=== PATIENT | male | born 1950 | race Asian ===

== ENCOUNTER 2017-01-03 | Emergency (ER) | payer OTHER ==
[~2017-01-03] VITALS: Ht 172.7 cm; Wt 57.9 kg
[2017-01-03 00:04] VITALS: Ht 172.7 cm; Wt 57.9 kg
--- NOTE | 2017-01-03 01:39 | RADRPT ---
PROCEDURE: CT brain without contrast. CLINICAL INDICATION: Injury and pain. TECHNIQUE: CT scan of the brain was performed on a multi-detector high-resolution CT scanner. Co ntiguous axial images were obtained from the skull base to the vertex without intravenous contrast. Coronal and sagittal reformatted images were also obtained. Images were reviewed on the PACS works tation. One or more of the following dose reduction techniques were used: - Automated exposure control. - Adjustment of the mA and/or kV according to patient size. - Use of iterative reconstruction technique. Exam CTD/vol = 45.01 mGy. Total exam DLP = 720.23 mGy-cm. COMPARISON: None. FINDINGS: The ventricles and cortical sulci are prominent consistent with mild age related volume loss. There are no areas of abnormal attenuation within the brain parenchyma. There is no mass effect or midli ne shift. There is no intracranial hemorrhage or abnormal extra-axial collection. There are atheros clerotic calcifications within bilateral distal internal carotid arteries. The calvarium is intact. There is no evidence of fracture. Visualized paranasal sinuses and mastoi d air cells are clear. IMPRESSION: No acute intracranial abnormality identified. Mild age related volume loss. Cerebral atherosclerosis. .Neal Mchugh MD, MD Date Time Electronically viewed and signed by .Neal Mchugh MD, MD on 01/03/2017 01:39 .T/
[2017-01-03] MEDS ORDERED: LIDOCAINE 2% (MDV) 20 ML INJ INJ ONE (02:00)
--- NOTE | 2017-01-03 02:18 | ERD ---
ER Documentation Chief Complaint Chief Complaint bib family for fall, lac on forehead HPI 66-year-old male brought in the family for follow-up. His laceration on his forehead. No loss of consciousness. This was a mechanical fall that was witnessed by family. Patient simply misstepped ROS All systems reviewed and are negative except as per history of present illness. Allergies Allergies: Coded Allergies: No Known Allergy (Unverified , 01/03/17) PMhx/Soc Medical and Surgical Hx: pt denies Medical Hx, pt denies Surgical Hx History of Surgery: No Anesthesia Reaction: No Hx Neurological Disorder: No Hx Respiratory Disorders: No Hx Cardiac Disorders: No Hx Psychiatric Problems: No Hx Miscellaneous Medical Probl: No Hx Alcohol Use: Yes Hx Tobacco Use: Yes Smoking Status: Current every day smoker Physical Exam Vitals Vital Signs Date Time Temp Pulse Resp B/P Pulse Ox O2 Delivery O2 Flow Rate FiO2 01/03/17 00:04 97.5 90 18 193/88 100 Physical Exam Const: [] Head: Atraumatic Eyes: Normal Conjunctiva ENT: Normal External Ears, Nose and Mouth. Neck: Full range of motion..~ No meningismus. Resp: Clear to auscultation bilaterally Cardio: Regular rate and rhythm, no murmurs Abd: Soft, non tender, non distended. Normal bowel sounds Skin: No petechiae or rashes Back: No midline or flank tenderness Ext: No cyanosis, or edema Neur: Awake and alert Psych: Normal Mood and Affect Results 24 hrs Current Medications Medications (Trade) Dose Ordered Sig/Tavares Route PRN Reason Start Time Stop Time Status Last Admin Dose Admin Lidocaine (Xylocaine 2% (Mdv) 20 ml) 20 ml ONCE ONCE INJ 01/03/17 02:00 01/03/17 02:01 DC Procedures/MDM Laceration Repair by me: Anesthesia: 1% lidocaine locally Location: Forehead Tendon/Joint/Nerves: No injury Foreign body: None detected after copious irrigation and exploration Technique: Simple Interrupted Sutures Complexity: No subcutaneous sutures/mucosal repair/ edge excision Post Closure Length: 2 cm Patient's bleeding was easily controlled in the department and there is no indication of anemia. No evidence of compartment syndrome, neurologic injury, vascular injury, open joint, tendon laceration, or foreign body. Patient is appropriate for outpatient follow up. 48 hour wound check. Scar minimization instructions given. Medical decision-makin-year-old male with closed head injury no loss of consciousness and nonfocal neurologically. Laceration closed. Patient tolerated procedure well. Alert and oriented 4. Patient will be discharged home as he has serial negative neurological exams and the family's capacity. Told to return for any worsening symptoms. Departure Diagnosis: Primary Impression: Fall Encounter type: initial encounter Qualified Code: W19.XXXA - Fall, initial encounter Additional Impression: Laceration Condition: Stable JOSH BRADEN Jan 03, 2017 02:18
[2017-01-03 02:42] VITALS: BP 156/89; PULSE 83; RESP 13
== END 2017-01-03 02:45 | disposition home or self-care (01) ==
LOC: E/R
DX: S01.81XA Laceration without foreign body of other part of head, initial encounter (principal); F17.210 Nicotine dependence, cigarettes, uncomplicated; R40.2142 Coma scale, eyes open, spontaneous, at arrival to emergency department; R40.2252 Coma scale, best verbal response, oriented, at arrival to emergency department; R40.2362 Coma scale, best motor response, obeys commands, at arrival to emergency department; W18.39XA Other fall on same level, initial encounter; Y92.9 Unspecified place or not applicable
CPT/HCPCS: 12011; 70450; Z7502; Z7610

== ENCOUNTER 2017-01-07 15:51 | Emergency (ER) | payer OTHER ==
[~2017-01-07] VITALS: Ht 157.5 cm; Wt 58.7 kg
[2017-01-07 16:04] VITALS: Ht 157.5 cm; Wt 58.7 kg
--- NOTE | 2017-01-07 19:40 | ERD ---
ER Documentation Chief Complaint Chief Complaint LEFT EYEBROW WOUND CHECK HPI 66-year-old male patient with no significant past medical history presents to the ED complaining of a wound check of laceration of left eyebrow. Patient accidentally tripped fell 4 days ago and sustained a laceration to his face. Denies any pain with extraocular movements. Denies any headache, dizziness, weakness, numbness or tingling. Denies any increased redness, swelling, fever, chills, nausea, vomiting, diarrhea. ROS All systems reviewed and are negative except as per history of present illness. Allergies Allergies: Coded Allergies: No Known Allergy (Unverified , 01/09/17) PMhx/Soc History of Surgery: No Anesthesia Reaction: No Hx Neurological Disorder: No Hx Respiratory Disorders: No Hx Cardiac Disorders: No Hx Psychiatric Problems: No Hx Miscellaneous Medical Probl: No Hx Alcohol Use: Yes Hx Substance Use: No Hx Tobacco Use: Yes Smoking Status: Current every day smoker Physical Exam Vitals Vital Signs Date Time Temp Pulse Resp B/P Pulse Ox O2 Delivery O2 Flow Rate FiO2 01/07/17 16:04 99.3 90 18 180/75 99 Physical Exam Const: Xlw-non-vqddqiivo, well-nourished. In no acute distress. Head: Atraumatic, normocephalic. 3 sutures of linear laceration of left eyebrow with no signs of erythema, edema, bleeding or purulent discharge noted. No fluctuance or induration. No dehiscence. Eyes: Normal Conjunctiva without injection. No purulent discharge. PERRLA. EOMI ENT: Normal external ear. Ear canal without erythema. Tympanic membrane pearly darnell without effusion or bulging. Nasal canal clear with normal turbinates. Moist oropharynx without tonsillar exudates. Non-erythematous pharynx. Uvula midline. No drooling. No trismus. Neck: No cervical midline tenderness. Full range of motion. No meningismus. No cervical lymphadenopathy. No JVD. Resp: Clear to auscultation bilaterally. No wheezing, rhonchi, rales, or crackles. No accessory muscle use. No retractions. Cardio: Regular rate and rhythm. No murmurs, rubs or gallops. Abd: Soft, non tender, non distended. Normal bowel sounds. No palpable masses. No rebound tenderness. No guarding. Negative McBurney's Point. Negative Ruggiero's Sign. Skin: Normal skin turgor. No petechiae or rashes Back: No midline tenderness. No CVA tenderness. Ext: No cyanosis, or edema. Distal pulses intact bilaterally. Neur: Awake and alert. Normal gait. Normal coordination. Cranial Nerves II- VII intact. Normal finger to nose. Muscle strength 5/5. Sensation intact. Psych: Normal Mood and Affect Procedures/MDM 66-year-old male patient with no significant past history presents to the ED check. Patient is afebrile and nontoxic-appearing. Patient has normal vital signs. Sutures not ready to be removed at this time. No signs of dehiscence Low suspicion for anaphylaxis, scabies, SJS/TEN, TSS, Lyme's Disease, syphilis, RMSF, shingles, disseminated gonorrhea chlamydia, DIC, TTP, ITP, erythema multiforme, sepsis, cellulitis, necrotizing fascitis, gangrene, meningococcemia , allergic contact dermatitis, urticaria, eczema, tinea infection, or other emergent conditions. Low suspicion for intracranial bleed, subarachnoid hemorrhage, meningitis, TIA, stroke, cavernous sinus thrombosis, skull fracture , periorbital fractures, nasal fractures, or other emergent conditions. Follow up with primary care physician in 1-2 days for suture removal. Instructed patient to return to the ED sooner for any worsening symptoms. Patient's questions were answered. Patient understood and agreed with discharge plan. Patient discharged stable. Departure Diagnosis: Primary Impression: Laceration re-check Condition: Stable Patient Instructions: Wound Check, Lac F/U (No Infection) Referrals: [facility] (PCP) [facility] YOU HAVE RECEIVED A MEDICAL SCREENING EXAM AND THE RESULTS INDICATE THAT YOU DO NOT HAVE A CONDITION THAT REQUIRES URGENT TREATMENT IN THE EMERGENCY DEPARTMENT. FURTHER EVALUATION AND TREATMENT OF YOUR CONDITION CAN WAIT UNTIL YOU ARE SEEN IN YOUR DOCTORS OFFICE WITHIN THE NEXT 1-2 DAYS. IT IS YOUR RESPONSIBILITY TO MAKE AN APPOINTMENT FOR FOLOW-UP CARE. IF YOU HAVE A PRIMARY DOCTOR --you should call your primary doctor and schedule an appointment IF YOU DO NOT HAVE A PRIMARY DOCTOR YOU CAN CALL OUR PHYSICIAN REFERRAL HOTLINE AT IF YOU CAN NOT AFFORD TO SEE A PHYSICIAN YOU CAN CHOSE FROM THE FOLLOWING [facility][1] [address] [facility]. [facility] [address] [facility] [address] [facility] [address] [facility] [address] [facility]. [facility] [address] [facility]. [facility] YOU HAVE RECEIVED A MEDICAL SCREENING EXAM AND THE RESULTS INDICATE THAT YOU DO NOT HAVE A CONDITION THAT REQUIRES URGENT TREATMENT IN THE EMERGENCY DEPARTMENT. FURTHER EVALUATION AND TREATMENT OF YOUR CONDITION CAN WAIT UNTIL YOU ARE SEEN IN YOUR DOCTORS OFFICE WITHIN THE NEXT 1-2 DAYS. IT IS YOUR RESPONSIBILITY TO MAKE AN APPOINTMENT FOR FOLOW-UP CARE. IF YOU HAVE A PRIMARY DOCTOR --you should call your primary doctor and schedule and appointment IF YOU DO NOT HAVE A PRIMARY DOCTOR YOU CAN CALL OUR PHYSICIAN REFERRAL HOTLINE AT . IF YOU CAN NOT AFFORD TO SEE A PHYSICIAN YOU CAN CHOSE FROM THE FOLLOWING [facility] INSTITUTIONS: [facility] [address] [place] [address] [facility] [address] [place] [address] [facility] [address] [place] [address] [facility] Additional Instructions: Call your primary care doctor TOMORROW for an appointment during the next 2 days for suture removal. See the doctor sooner or return here if your condition worsens before your appointment time - worsening headache, vomiting, fever, dizziness, weakness, etc. SAMSON DICKERSON PA-C Jan 07, 2017 19:40
== END 2017-01-07 18:52 | disposition home or self-care (01) ==
LOC: FTE 15:51
DX: Z48.01 Encounter for change or removal of surgical wound dressing (principal); F17.210 Nicotine dependence, cigarettes, uncomplicated
CPT/HCPCS: 99281

== ENCOUNTER 2017-01-09 06:26 | Emergency (ER) | payer OTHER ==
[~2017-01-09] VITALS: Ht 172.7 cm; Wt 58.3 kg
[2017-01-09 06:28] VITALS: Ht 172.7 cm; Wt 58.3 kg
--- NOTE | 2017-01-09 07:08 | ERD ---
ER Documentation Chief Complaint Chief Complaint left eyebrow suture removal HPI 66-year-old male present here today for removal of the sutures in his left eyebrow area. He has sustained laceration 6 days ago when he tripped and fell. Patient stated that he is doing well since. Denies fever. Denies pain at the site of the laceration or wound drainage. Denies nausea vomiting. Denies lethargy or decreased alertness. Denies confusion or difficulty in concentration. ROS All systems reviewed and are negative except as per history of present illness. Allergies Allergies: Coded Allergies: No Known Allergy (Unverified , 01/09/17) PMhx/Soc Medical and Surgical Hx: pt denies Medical Hx, pt denies Surgical Hx History of Surgery: No Anesthesia Reaction: No Hx Neurological Disorder: No Hx Respiratory Disorders: No Hx Cardiac Disorders: No Hx Psychiatric Problems: No Hx Miscellaneous Medical Probl: No Hx Alcohol Use: Yes (socially) Hx Substance Use: No Hx Tobacco Use: Yes Smoking Status: Current every day smoker Physical Exam Vitals Vital Signs Date Time Temp Pulse Resp B/P Pulse Ox O2 Delivery O2 Flow Rate FiO2 01/09/17 06:28 98.5 94 16 186/94 99 Physical Exam General: Well-developed, well-nourished, conscious and coherent, in no distress Skin: Warm and dry without rash, good texture and turgor Head: Normocephalic. Left eyebrow laceration site show good healing. No periwound erythema, swelling, or exudate. Eyes: Sclera and conjunctivae normal; pupils equal, round, and reactive to light; extraocular movements are intact Chest: Normal AP diameter. Good expansion without retractions. Nontender. Lungs are clear to auscultate bilaterally with good tidal volume Heart: Regular rate and rhythm. No murmur, rub, or gallops heard Extremities: Full range of motion. Good strength bilaterally. No clubbing, cyanosis, or edema. Peripheral pulses are intact. Sensation intact Neuro: Alert and oriented 4, GCS 15. Cranial nerves grossly intact. Motor and sensory exams nonfocal. Moves all extremities. Speech clear. Gait normal Procedures/MDM Suture Removal by me: Sutures removed with tweezers and scissors without incident. Wound shows no evidence of infection, foreign body, neurologic injury, vascular injury, open joint or tendon laceration. Patient does not have any signs of intracranial bleeding, or concussion from the fall. Patient to follow up PRN. Departure Diagnosis: Primary Impression: Encounter for removal of sutures Condition: Stable Patient Instructions: Suture Removal, No Complication Referrals: [facility] (PCP) Additional Instructions: Call your primary care doctor TOMORROW for an appointment during the next 2-3 days.See the doctor sooner or return here if your condition worsens before your appointment time. MANOJ GARCIA NP Jan 09, 2017 07:08
[2017-01-09 07:12] VITALS: BP 158/88; RESP 19
== END 2017-01-09 07:12 | disposition home or self-care (01) ==
LOC: FTE 06:26
DX: Z48.02 Encounter for removal of sutures (principal); F17.210 Nicotine dependence, cigarettes, uncomplicated
CPT/HCPCS: 99281

== ENCOUNTER 2017-08-13 12:25 | Inpatient (IN) | END 2017-08-15 13:10 | disposition home or self-care (01) | DRG 378 ==

== ENCOUNTER 2017-10-31 07:41 | Emergency (ER) | END 2017-10-31 08:28 | disposition home or self-care (01) ==